=== PATIENT | male | born 2000 | race American Indian/Alaskan Native ===

== ENCOUNTER 2022-05-26 23:15 | Emergency (ER) | payer OTHER ==
[~2022-05-26] VITALS: Ht 182.9 cm; Wt 88.0 kg
[2022-05-26] MEDS ORDERED: diphenhydrAMINE 50MG/ML VIAL IM ONE (23:25)
[2022-05-26] MEDS ORDERED: HALOPERIDOL 5MG/ML 1ML VIAL IM ONE (23:25)
[2022-05-26] MEDS ORDERED: MIDAZOLAM INJ 2MG/2ML VIAL IM ONE (23:25)
[2022-05-26] MEDS ORDERED: MIDAZOLAM INJ 2MG/2ML VIAL As Ordered ONE (23:27)
[2022-05-26] MEDS ORDERED: NS 1,000 ML IV ONE (23:35)
[2022-05-26 23:48] LABS: BASO % 0.5 % (0.0-1.0); EOS # 0.5 10^3/uL (0.0-0.5); EOS % 5.6 % (0.0-3.0); HEMATOCRIT 43.2 % (42.0-52.0); LYMPH # 3.3 10^3/uL (1.5-5.0); LYMPH % 38.3 % (24.0-44.0); MEAN CORPUSCULAR HEMOGLOBIN 29.9 pg (27.0-33.0); MEAN CORPUSCULAR HGB CONC 34.7 g/dl (32.0-36.5); MEAN CORPUSCULAR VOLUME 86.2 fl (80.0-96.0); MONO # 0.5 10^3/uL (0.0-0.8); MONO % 6.1 % (2.0-8.0); NEUTROPHILS # 4.3 10^3/uL (1.5-8.5); PLATELET COUNT, AUTOMATED 207 10^3/uL (150-450); RED BLOOD COUNT 5.01 10^6/uL (4.30-6.10); WHITE BLOOD COUNT 8.7 10^3/uL (4.0-10.0)
[2022-05-27] MEDS ORDERED: UNRESOLVED CLARIFICATION ENTRY XX SCH (00:01)
[2022-05-27 00:14] LABS: ACETAMINOPHEN LEVEL < 2.0 UG/ML (10.0-20.0); CPK CREATINE PHOSPHOKINASE 180 U/L (46-171)
[2022-05-27 00:15] LABS: SALICYLATE LEVEL < 3.0 MG/DL (<30)
[2022-05-27 00:18] LABS: ALBUMIN 4.4 G/DL (3.2-5.2); ALKALINE PHOSPHATASE 103 U/L (46-116); ALT/SGPT 22 U/L (7.0-40); AST/SGOT 17 U/L (<34); BILIRUBIN,DIRECT 0.1 MG/DL (<0.4); BILIRUBIN,TOTAL 0.4 MG/DL (0.3-1.2); BLOOD UREA NITROGEN 10 MG/DL (9-23); CALCIUM LEVEL 8.4 MG/DL (8.5-10.1); CARBON DIOXIDE LEVEL 27 MMOL/L (20-31); CHLORIDE LEVEL 109 MMOL/L (98-107); CREATININE FOR GFR 0.88 MG/DL (0.70-1.30); GLUCOSE, FASTING 96 MG/DL (60-100); POTASSIUM SERUM 3.7 MMOL/L (3.5-5.1); SODIUM LEVEL 145 MMOL/L (136-145); TOTAL PROTEIN 7.5 G/DL (5.7-8.2)
[2022-05-27 00:26] LABS: ETHYL ALCOHOL (ETHANOL) 0.376 % (0.000-0.010)
[2022-05-27 01:57] LABS: AMPHETAMINES LEVEL URINE NEGATIVE (NEGATIVE)
[2022-05-27 01:58] LABS: BARBITURATES URINE NEGATIVE (NEGATIVE); BENZODIAZEPINES URINE POSITIVE (NEGATIVE); CANNABINOIDS URINE NEGATIVE (NEGATIVE); COCAINE METABOLITE URINE NEGATIVE (NEGATIVE); METHADONE URINE NEGATIVE (NEGATIVE); OPIATES URINE NEGATIVE (NEGATIVE); PHENCYCLIDINE URINE NEGATIVE (NEGATIVE)
[2022-05-27] MEDS ORDERED: MULTIVITAMIN -ADULT INJECTION 10 ML, THIAMINE INJection 100 MG, FOLIC ACID 1 MG in NS 1... IV ONE (08:10)
[2022-05-27 11:39] VITALS: BP 119/55
== END 2022-05-27 11:45 | disposition home or self-care (01) ==
LOC: M ED 23:15 → EDBD 23:15 → M ED 05-27 11:45
DX: F10.129 Alcohol abuse with intoxication, unspecified (principal)
CPT/HCPCS: 70450; 71045; 72125; 80048; 80076; 80143; 80307; 82077; 82550; 84443; 85025; 87635; 93005; 93041; 94760; 96361; 96372; 96374; 99285; J1200; J1630; J2250; J3411

== ENCOUNTER 2023-07-21 22:48 | Inpatient (IN) | payer OTHER ==
[~2023-07-21] VITALS: Ht 172.7 cm; Wt 109.1 kg
[2023-07-21 23:17] LABS: HEMOGLOBIN 15.3 g/dl (13.5-17.5); MEAN CORPUSCULAR HEMOGLOBIN 29.8 pg (27.0-33.0); MEAN CORPUSCULAR HGB CONC 35.6 g/dl (32.0-36.5); MEAN CORPUSCULAR VOLUME 83.8 fl (80.0-96.0); PLATELET COUNT, AUTOMATED 219 10^3/uL (150-450); RED BLOOD COUNT 5.13 10^6/uL (4.30-6.10); WHITE BLOOD COUNT 7.6 10^3/uL (4.0-10.0)
[2023-07-21] MEDS ORDERED: HOME MED LIST COMPLETE! XX SCH (23:35)
[2023-07-21 23:58] LABS: AMPHETAMINES LEVEL URINE NEGATIVE (NEGATIVE); BARBITURATES URINE NEGATIVE (NEGATIVE); BENZODIAZEPINES URINE NEGATIVE (NEGATIVE); COCAINE METABOLITE URINE NEGATIVE (NEGATIVE); METHADONE URINE NEGATIVE (NEGATIVE)
[2023-07-21 23:59] LABS: CANNABINOIDS URINE NEGATIVE (NEGATIVE); OPIATES URINE NEGATIVE (NEGATIVE); PHENCYCLIDINE URINE NEGATIVE (NEGATIVE)
[2023-07-22 00:01] LABS: ETHYL ALCOHOL (ETHANOL) 0.238 % (0.000-0.010)
[2023-07-22 00:03] LABS: SALICYLATE LEVEL < 3.0 MG/DL (<30)
[2023-07-22 00:07] LABS: ALBUMIN 4.1 G/DL (3.2-5.2); ALKALINE PHOSPHATASE 108 U/L (46-116); ALT/SGPT 25 U/L (7.0-40); AST/SGOT 17 U/L (<34); BILIRUBIN,DIRECT 0.3 MG/DL (<0.4); BILIRUBIN,TOTAL 0.8 MG/DL (0.3-1.2); BLOOD UREA NITROGEN < 5 MG/DL (9-23); CALCIUM LEVEL 8.7 MG/DL (8.5-10.1); CARBON DIOXIDE LEVEL 22 MMOL/L (20-31); CHLORIDE LEVEL 106 MMOL/L (98-107); CREATININE FOR GFR 0.73 MG/DL (0.70-1.30); GLOMERULAR FILTRATION RATE > 60.0 (>60); GLUCOSE, FASTING 98 MG/DL (60-100); POTASSIUM SERUM 3.2 MMOL/L (3.5-5.1); SODIUM LEVEL 141 MMOL/L (136-145); THYROID STIMULATING HORMONE 1.066 uIU/ML (0.55-4.78); TOTAL PROTEIN 7.3 G/DL (5.7-8.2)
[2023-07-22] MEDS: POTASSIUM CHLORIDE 10MEQ SR TABLET PO ONE (01:19)
[2023-07-23] MEDS ORDERED: POTASSIUM CHLORIDE 10MEQ SR TABLET PO ONE (07:30)
[2023-07-23] MEDS ORDERED: diphenhydrAMINE 25MG CAP PO PRN (11:00)
[2023-07-23] MEDS ORDERED: ACETAMINOPHEN TAB 650MG DOSE (2X325MG) PO PRN (11:00)
[2023-07-23] MEDS ORDERED: IBUPROFEN 400MG TAB PO PRN (11:00)
[2023-07-23] MEDS ORDERED: MAALOX 30 ML SUSP *UDC PO PRN (11:00)
[2023-07-23] MEDS ORDERED: MOM 30ML SUSPENSION UDC PO PRN (11:00)
[2023-07-23] MEDS ORDERED: LORazepam 2 MG TAB PO PRN (11:00)
[2023-07-23] MEDS ORDERED: traZODone 50 MG TAB PO PRN (11:00)
[2023-07-23] MEDS: THIAMINE 100 MG TAB PO SCH (11:25)
[2023-07-23] MEDS: FOLIC ACID 1MG TAB PO SCH (11:26)
[2023-07-23] MEDS: MULTIVITAMINS/MINERALS THERAP 1 TAB PO SCH (11:26)
[2023-07-23 13:48] VITALS: BP 130/84; TEMP 99.6; O2SAT 97
[2023-07-23 15:00] VITALS: BP 130/84
[2023-07-23] MEDS: NICOTINE 21MG/24HR 1 EA TRANSDERMAL TD SCH (16:37)
[2023-07-23 18:00] VITALS: BP 130/89; TEMP 97.9
[2023-07-24 00:17] VITALS: BP 140/72
[2023-07-24 06:12] VITALS: BP 133/88
[2023-07-24 06:28] VITALS: BP 133/88; TEMP 97.9; O2SAT 100
[2023-07-24 18:39] VITALS: BP 136/85; TEMP 97.9
[2023-07-25 06:19] VITALS: BP 139/81; TEMP 97.1; O2SAT 100
[2023-07-25 06:22] VITALS: BP 139/81
== END 2023-07-25 10:37 | disposition home or self-care (01) | DRG 881 ==
LOC: EDBD 22:48 → M ED 22:48 → M ED INP 07-23 10:56 → M PSY 07-23 13:50
PROVIDERS: ADMIT Student in an Organized Health Care Education/Training Program; ATTEND Student in an Organized Health Care Education/Training Program
DX: F32.A Depression, unspecified (principal); R45.851 Suicidal ideations; F10.920 Alcohol use, unspecified with intoxication, uncomplicated; F17.290 Nicotine dependence, other tobacco product, uncomplicated